=== PATIENT | male | born 1995 | race Caucasian/White ===

== ENCOUNTER 2020-01-01 08:58 | Emergency (ER) | payer BC ==
--- NOTE | 2020-01-01 09:21 | ED Physician Documentation ---
PD HPI NVD - Stated complaint Stated Complaint: NAUSEA - Chief complaint Chief Complaint: Abd Pain - History obtained from History obtained from: Patient - History of Present Illness Timing - onset: Yesterday Timing - duration: Hours Timing - details: Gradual onset, Still present Associated symptoms: Other (nausea and vomiting) Contributing factors: Other (cannabis use) Improved by: Laying still, Vomiting Similar symptoms before: Diagnosis (cannabis hyperemesis) Recently seen: Not recently seen - Additonal information Additional information: Previously well 24-year-old male has a prior history of cannabis hyperemesis and in [place] he smoked a lot of marijuana and had frequent visits to the emergency department requiring rescue a number of times and a one-time 5-day hospitalization. He states the most effective agents for treatment were Haldol and Benadryl and he never got much relief with the use of Zofran. He has moved up to [place] he has been here the last 5 months. He has reduced his intake considerably and subsequently he has been smoking more than usual recently and has now developed symptoms again. He denies any abdominal pain associated today and denies any diarrhea or constipation.He has not otherwise been feeling ill Review of Systems Constitutional: denies: Fever Eyes: denies: Decreased vision Ears: denies: Ear pain Nose: denies: Congestion Throat: reports: Sore throat Cardiac: denies: Chest pain / pressure, Palpitations Respiratory: denies: Dyspnea, Cough GI: reports: Nausea, Vomiting. denies: Abdominal Pain, Constipation, Diarrhea : denies: Dysuria, Frequency PD PAST MEDICAL HISTORY - Present Medications Home Medications: Ambulatory Orders Medication Instructions Recorded Confirmed Fluoxetine HCl [Prozac] 20 mg PO DAILY 01/01/20 01/01/20 haloperidoL [Haldol] 1 - 2 mg PO Q8H PRN #10 tablet 01/01/20 - Allergies Allergies/Adverse Reactions: Allergies Allergy/AdvReac Type Severity Reaction Status Date / Time No Known Drug Allergies Allergy Verified 01/01/20 09:04 PD ED PE NORMAL - Vitals Vital signs reviewed: Yes (Hypertensive) - General General: Alert and oriented X 3, No acute distress, Well developed/nourished - HEENT HEENT: Atraumatic, PERRL, EOMI - Neck Neck: Supple, no meningeal sign, No bony TTP - Cardiac Cardiac: RRR, No murmur - Respiratory Respiratory: No respiratory distress, Clear bilaterally - Abdomen Abdomen: Normal bowel sounds, Soft, Non tender, Non distended, No organomegaly - Back Back: No CVA TTP, No spinal TTP - Derm Derm: Normal color, Warm and dry, No rash - Extremities Extremities: No deformity, No edema - Neuro Neuro: Alert and oriented X 3, 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, No motor deficit, No sensory deficit, Normal speech Eye Opening: Spontaneous Motor: Obeys Commands Verbal: Oriented GCS Score: 15 - Psych Psych: Normal mood, Normal affect Results - Vitals Vitals: Vital Signs - 24 hr 01/01/20 01/01/20 01/01/20 09:05 09:25 10:16 Temperature 37.6 C H Heart Rate 83 85 89 Respiratory 16 16 16 Rate Blood Pressure 163/102 H 165/100 H 153/86 H O2 Saturation 100 100 100 01/01/20 01/01/20 12:00 13:53 Temperature 37.6 C H 37.5 C Heart Rate 101 H 92 Respiratory 16 16 Rate Blood Pressure 163/89 H 150/89 H O2 Saturation 100 100 Oxygen O2 Source Room air - Labs Labs: Laboratory Tests 01/01/20 01/01/20 01/01/20 09:12 09:12 12:32 WBC 13.7 H RBC 5.49 Hgb 16.5 Hct 46.4 MCV 84.5 MCH 30.1 MCHC 35.6 RDW 11.9 L Plt Count 331 MPV 10.3 Neut # (Auto) 12.6 H Lymph # (Auto) 0.5 L [place] # (Auto) 0.5 Eos # (Auto) 0.0 Baso # (Auto) 0.0 Absolute Nucleated RBC 0.00 Nucleated RBC % 0.0 Sodium 137 Potassium 3.8 Chloride 95 L Carbon Dioxide 23 Anion Gap 19.0 H BUN 19 Creatinine 1.0 Estimated GFR (MDRD) 93 Glucose 170 H Calcium 10.3 Total Bilirubin 1.5 H AST 20 ALT 20 Alkaline Phosphatase 71 Total Protein 9.4 H Albumin 5.6 H Globulin 3.8 Albumin/Globulin Ratio 1.5 Lipase 22 Urine Color YELLOW Urine Clarity CLEAR Urine pH 6.5 Ur Specific [place] 1.020 Urine Protein TRACE Urine Glucose (UA) NEGATIVE Urine Ketones >=80 H Urine Occult Blood SMALL H Urine Nitrite NEGATIVE Urine Bilirubin NEGATIVE Urine Urobilinogen 0.2 (NORMAL) Ur Leukocyte Esterase NEGATIVE Urine RBC 0-5 Urine WBC 0-3 Ur Squamous Epith Cells NONE SEEN Urine Bacteria Few Urine Mucus Few Strands Ur Microscopic Review INDICATED Urine Culture Comments NOT INDICATED PD MEDICAL DECISION MAKING - ED course Complexity details: reviewed results, re-evaluated patient, considered d ifferential, d/w patient ED course: 24-year-old male with cannabis hyperemesis is administered Haldol 2.5 mg intravenously as well as Benadryl 25 mg intravenously and has marked improvement in his symptoms he is administered a liter of saline and he is discharged home with a prescription for Haldol 1 mg tablets to take 1-2 every 8 as needed with Benadryl. Departure - Departure Disposition: Home, Self Care Clinical Impression: Cannabis hyperemesis syndrome concurrent with and due to cannabis abuse Condition: Stable Instructions: ED Nausea Vomiting Follow-Up: [facility] [Provider Group] Prescriptions: haloperidoL [Haldol] 1 - 2 mg PO Q8H PRN #10 tablet PRN Reason: vomiting Comments: Elimination of cannabis will resolve your symptoms eventually. If you have recurrence of your symptoms use the Haldol and take it with some Benadryl. Discharge Date/Time: 01/01/20 13:54
[2020-01-01 09:30] LABS: BASOPHILS % (AUTO) 0.1 %; EOSINOPHILS % (AUTO) 0.1 %; HGB - HEMOGLOBIN 16.5 g/dL (14.0-18.0); LYMPHOCYTES # (AUTO) 0.5 10^3/uL (1.5-3.5); LYMPHOCYTES % (AUTO) 3.8 %; MEAN CORPUSCULAR HEMOGLOBIN 30.1 pg (27.0-31.0); MEAN CORPUSCULAR HGB CONC 35.6 g/dL (32.0-36.0); MEAN CORPUSCULAR VOLUME 84.5 fL (80.0-94.0); MEAN PLATELET VOLUME 10.3 fL (7.4-11.4); MONOCYTES # (AUTO) 0.5 10^3/uL (0.0-1.0); MONOCYTES % (AUTO) 3.6 %; NEUTROPHILS # (AUTO) 12.6 10^3/uL (1.5-6.6); PLT - PLATELET COUNT 331 10^3/uL (130-450); RED BLOOD COUNT 5.49 10^6/uL (4.70-6.10); RED CELL DISTRIBUTION WIDTH 11.9 % (12.0-15.0); WHITE BLOOD COUNT 13.7 x10^3/uL (4.8-10.8)
[2020-01-01] MEDS ORDERED: SODIUM CHLORIDE 0.9% 1,000 ML IV STA (09:30)
[2020-01-01] MEDS ORDERED: HALOPERIDOL 5 MG/ML VIAL IVP ONE (09:30)
[2020-01-01] MEDS ORDERED: diphenhydrAMINE INJ 50 MG/ML VIAL IVP STA (09:31)
[2020-01-01 09:41] LABS: ALBUMIN 5.6 g/dL (3.2-5.5); ALBUMIN/GLOBULIN RATIO 1.5 (1.0-2.2); BILIRUBIN,TOTAL 1.5 mg/dL (0.2-1.0); CALCIUM 10.3 mg/dL (8.5-10.3); TOTAL PROTEIN 9.4 g/dL (6.7-8.2)
[2020-01-01 12:34] LABS: BILIRUBIN,URINE NEGATIVE (NEGATIVE); GLUCOSE, URINE (UA) NEGATIVE (NEGATIVE); KETONES,URINE (UA) >=80 mg/dL (NEGATIVE); LEUKOCYTE ESTERASE, URINE NEGATIVE (NEGATIVE); NITRITE,URINE NEGATIVE (NEGATIVE); OCCULT BLOOD,URINE SMALL (NEGATIVE); PH,URINE 6.5 PH (5.0-7.5); PROTEIN,URINE TRACE mg/dL (NEGATIVE); UROBILINOGEN,URINE 0.2 (NORMAL) E.U./dL (NORMAL)
[2020-01-01 12:39] LABS: CLARITY,URINE CLEAR (CLEAR)
[2020-01-01 12:48] LABS: BACTERIA,URINE Few /HPF (None Seen); MUCUS,URINE Few Strands; RBC,URINE 0-5 /HPF (0-5); SQUAMOUS EPITHELIAL CELL,UR NONE SEEN (<= Few)
[2020-01-01 13:54] VITALS: BP 150/89
== END 2020-01-01 13:54 | disposition home or self-care (01) ==
LOC: ED 08:58
DX: R11.2 Nausea with vomiting, unspecified (principal); R03.0 Elevated blood-pressure reading, without diagnosis of hypertension; F12.188 Cannabis abuse with other cannabis-induced disorder
CPT/HCPCS: 36415; 80053; 81001; 83690; 85025; 96361; 96374; 99283; 99284; J1200; 81003; 87086

== ENCOUNTER 2020-01-10 10:07 | Emergency (ER) | payer BC ==
[2020-01-10 11:33] LABS: BASOPHILS % (AUTO) 0.2 %; EOSINOPHILS % (AUTO) 0.4 %; HGB - HEMOGLOBIN 16.8 g/dL (14.0-18.0); LYMPHOCYTES # (AUTO) 1.2 10^3/uL (1.5-3.5); MEAN CORPUSCULAR HGB CONC 35.1 g/dL (32.0-36.0); MEAN CORPUSCULAR VOLUME 85.5 fL (80.0-94.0); MEAN PLATELET VOLUME 9.8 fL (7.4-11.4); MONOCYTES # (AUTO) 0.8 10^3/uL (0.0-1.0); MONOCYTES % (AUTO) 7.3 %; NEUTROPHILS # (AUTO) 8.7 10^3/uL (1.5-6.6); NEUTROPHILS % (AUTO) 80.4 %; PLT - PLATELET COUNT 332 10^3/uL (130-450); RED CELL DISTRIBUTION WIDTH 11.9 % (12.0-15.0); WHITE BLOOD COUNT 10.8 x10^3/uL (4.8-10.8)
[2020-01-10 11:46] LABS: ALBUMIN 5.3 g/dL (3.2-5.5); ALBUMIN/GLOBULIN RATIO 1.8 (1.0-2.2); BILIRUBIN,TOTAL 1.6 mg/dL (0.2-1.0); TOTAL PROTEIN 8.3 g/dL (6.7-8.2)
[2020-01-10] MEDS ORDERED: HALOPERIDOL 5 MG/ML VIAL IVP PRN (13:35)
[2020-01-10] MEDS ORDERED: SODIUM CHLORIDE 0.9% 1,000 ML IV STA (13:35)
[2020-01-10] MEDS ORDERED: diphenhydrAMINE INJ 50 MG/ML VIAL IVP STA (13:35)
[2020-01-10 13:36] LABS: GLUCOSE, URINE (UA) NEGATIVE (NEGATIVE); KETONES,URINE (UA) >=80 mg/dL (NEGATIVE); LEUKOCYTE ESTERASE, URINE NEGATIVE (NEGATIVE); NITRITE,URINE NEGATIVE (NEGATIVE); OCCULT BLOOD,URINE MODERATE (NEGATIVE); PROTEIN,URINE 30 mg/dL (NEGATIVE); UROBILINOGEN,URINE 1 (NORMAL) E.U./dL (NORMAL)
--- NOTE | 2020-01-10 13:38 | ED Physician Documentation ---
History of Present Illness - Stated complaint Stated Complaint: N/V - Chief complaint Chief Complaint: Abd Pain - History obtained from History obtained from: Patient - History of Present Illness Timing: Prior to arrival, How many weeks ago (2) - Additonal information Additional information: 24-year-old male presents to the emergency department for evaluation of uncontrolled vomiting. He was seen here recently for similar. He does have a history of hyperemesis cannabis but denies any cannabis use since being seen in the emergency department. He does report multiple evaluations and hospitalizations when he lived in [place] for similar. He reports that about 5 years ago he did undergo an EGD in which he reports he was diagnosed with gastric paresis. Intermittently through the years his symptoms have been controlled with Reglan but he has not been able to have a prescription for quite some time. He denies fevers, diarrhea. No cough, chest pain or dyspnea. He denies urinary urgency, frequency hematuria flank or CVA pain. No pertinent past surgical history. Review of Systems Constitutional: denies: Fever, Chills Eyes: reports: Reviewed and negative Ears: reports: Reviewed and negative Nose: reports: Reviewed and negative Throat: reports: Reviewed and negative Cardiac: reports: Reviewed and negative Respiratory: reports: Reviewed and negative GI: reports: Abdominal Pain, Nausea, Vomiting. denies: Constipation, Diarrhea, Hematemesis, Bloody / black stool : reports: Reviewed and negative Skin: reports: Reviewed and negative Neurologic: reports: Reviewed and negative PD PAST MEDICAL HISTORY - Past Medical History Cardiovascular: None Respiratory: None Neuro: None Endocrine/Autoimmune: None GI: Other : None HEENT: None Psych: Depression, Anxiety Musculoskeletal: None Derm: None Other Past Medical History: gastroparesis - Past Surgical History Past Surgical History: No - Present Medications Home Medications: Ambulatory Orders Medication Instructions Recorded Confirmed Fluoxetine HCl [Prozac] 20 mg PO DAILY 01/01/20 01/10/20 Ondansetron Odt [Zofran] 4 mg TL Q6H PRN #10 tablet 01/10/20 - Allergies Allergies/Adverse Reactions: Allergies Allergy/AdvReac Type Severity Reaction Status Date / Time No Known Drug Allergies Allergy Verified 01/10/20 10:23 - Social History Does the pt smoke?: Yes Smoking Status: Former smoker Does the pt drink ETOH?: Yes Does the pt have substance abuse?: Yes Substance Use and Type: Marijuana - Immunizations Immunizations are current?: Yes - POLST Patient has POLST: No PD ED PE NORMAL - General General: Alert and oriented X 3, No acute distress, Well developed/nourished - HEENT HEENT: Atraumatic, EOMI, Ears normal, Moist mucous membranes, Pharynx benign - Neck Neck: Supple, no meningeal sign, No adenopathy - Cardiac Cardiac: RRR, No murmur - Respiratory Respiratory: No respiratory distress, Clear bilaterally - Abdomen Abdomen: Normal bowel sounds, Soft, Non distended. No: Non tender (Mild lower suprapubic tenderness. Negative McBurney's negative Rodríguez's. 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, No motor deficit, No sensory deficit Eye Opening: Spontaneous Motor: Obeys Commands Verbal: Oriented GCS Score: 15 Results - Vitals Vitals: Vital Signs - 24 hr 01/10/20 01/10/20 10:24 13:31 Temperature 36.8 C 37.1 C Heart Rate 96 89 Respiratory 16 16 Rate Blood Pressure 159/112 H 166/100 H O2 Saturation 97 99 Oxygen O2 Source Room air - Labs Labs: Laboratory Tests 01/10/20 01/10/20 01/10/20 10:52 11:27 11:27 WBC 10.8 RBC 5.60 Hgb 16.8 Hct 47.9 MCV 85.5 MCH 30.0 MCHC 35.1 RDW 11.9 L Plt Count 332 MPV 9.8 Neut # (Auto) 8.7 H Lymph # (Auto) 1.2 L [place] # (Auto) 0.8 Eos # (Auto) 0.0 Baso # (Auto) 0.0 Absolute Nucleated RBC 0.00 Nucleated RBC % 0.0 Sodium 138 Potassium 3.4 L Chloride 96 L Carbon Dioxide 24 Anion Gap 18.0 H BUN 15 Creatinine 1.0 Estimated GFR (MDRD) 93 Glucose 126 H Calcium 10.0 Total Bilirubin 1.6 H AST 20 ALT 20 Alkaline Phosphatase 72 Total Protein 8.3 H Albumin 5.3 Globulin 3.0 Albumin/Globulin Ratio 1.8 Lipase 27 Urine Color YELLOW Urine Clarity CLEAR Urine pH 6.0 Ur Specific [place] 1.025 Urine Protein 30 H Urine Glucose (UA) NEGATIVE Urine Ketones >=80 H Urine Occult Blood MODERATE H Urine Nitrite NEGATIVE Urine Bilirubin NEGATIVE Urine Urobilinogen 1 (NORMAL) Ur Leukocyte Esterase NEGATIVE Urine RBC 0-5 Urine WBC 0-3 Ur Squamous Epith Cells NONE SEEN Urine Bacteria None Seen Urine Mucus Marked Strands Ur Microscopic Review INDICATED Urine Culture Comments NOT INDICATED - Rads (name of study) CT abd w/o Radiology: Final report received (Suspected right ureteral calculus measuring no greater than 0.5 mm. No associated hydronephrosis or hydroureter. The rest of the exam is unremarkable.) PD MEDICAL DECISION MAKING - ED course Complexity details: reviewed results, re-evaluated patient, considered differential, d/w patient ED course: 24-year-old male presents to the emergency department for chief complaint of uncontrolled vomiting for much of the last 2 weeks. He does have a history of gastroparesis as well as cannabis induced hyperemesis. He does report that he has had no cannabis use now for nearly 2 weeks. On laboratory exam he has no leukocytosis or findings concerning for renal or hepatic impairment. I do note hematuria. In further discussion with the patient he does report that he has a history of kidney stones especially when he was a child. At this time we will proceed with noncontrast CT scan to evaluate for further causes of hematuria. Should be noted that he has no right lower quadrant tenderness and a negative McBurney's. My suspicion for acute appendicitis is low - 1445: Noncontrast CT of the abdomen shows a right ureteral stone without obstruction hydroureter or hydronephrosis. However given the lack of flank or CVA pain my suspicion that this non-obstructing stone is contributing to his symptoms is fairly low. This gentleman was given Haldol and Benadryl here in the emergency department. Since then he has been able to tolerate clear sips of liquid. At this time I suspect that his uncontrolled vomiting is most likely due to gastroparesis. He denies any cannabis use now for nearly 2 weeks. I will write him for a prescription of Reglan. I also advised close follow-up with his primary care doctor to discuss the long-term management of gastroparesis versus intermittent hyperemesis cannabis versus a cyclic vomiting syndrome. emergent return precautions discussed Departure - Departure Disposition: 01 Home, Self Care Clinical Impression: Ureteral calculus, left Vomiting Qualifiers: Vomiting type: unspecified Vomiting Intractability: non-intractable Nausea presence: with nausea Qualified Code(s): R11.2 - Nausea with vomiting, unspecified Hematuria Qualifiers: Hematuria type: other microscopic Qualified Code(s): R31.29 - Other microscopic hematuria; R31.2 - Other microscopic hematuria Condition: Stable Record reviewed to determine appropriate education?: Yes Instructions: Gastroparesis Prescriptions: Ondansetron Odt [Zofran] 4 mg TL Q6H PRN #10 tablet PRN Reason: Nausea / Vomiting Comments: Oleg your CT scan shows a very small nonobstructing stone in your right ureter. This is most likely the cause of the blood in your urine. I think that at this time you are likely having a flare of your gastroparesis. Because you have been prescribed Haldol and Prozac I cannot prescribe Reglan today. However I have written a prescription for Zofran to use for nausea at home. I encourage small frequent sips of clear liquids. It is very important that you schedule a close follow-up with your primary care doctor. They should be in control of managing your gastroparesis in the long-term. Because it is been nearly 2 weeks since you smoked pot I do not feel that cannabis is the cause of your vomiting today. Please return to the emergency department if you have uncontrolled vomiting, fevers, suddenly severe or different abdominal pain or if you find that you are unable to keep foods or liquids down for 48 hours or more.
[2020-01-10 13:39] LABS: BILIRUBIN,URINE NEGATIVE (NEGATIVE); CLARITY,URINE CLEAR (CLEAR); ICTOTEST,URINE NEGATIVE
[2020-01-10 13:47] LABS: BACTERIA,URINE None Seen /HPF (None Seen); MUCUS,URINE Marked Strands; RBC,URINE 0-5 /HPF (0-5); SQUAMOUS EPITHELIAL CELL,UR NONE SEEN (<= Few)
--- NOTE | 2020-01-10 14:23 | CT Report ---
PROCEDURE: Abdomen/Pelvis WO INDICATIONS: Hematuria and vomiting TECHNIQUE: Noncontrast 5 mm thick sections acquired from the diaphragms to the symphysis. 5 mm coronal and sagi ttal reformats were then performed. For radiation dose reduction, the following was used: automated exposure control, adjustment of mA and/or kV according to patient size. COMPARISON: None. FINDINGS: Image quality: Excellent. ABDOMEN: Lung bases: Lung bases are clear. Heart size is normal. Urinary tract: Although not entirely definitive, there is a suspected 0.5 mm right ureteral calculus (series 3 image 49). This produces no hydroureter or hydronephrosis. Additional urolithiasis demonstr ated. No perinephric fat stranding. Normal course and caliber of the ureters. Urinary bladder unremar kable Solid organs: Liver and spleen are normal in size. Gallbladder is normal Pancreas is normal in con tours. No adrenal nodules. Kidneys are normal in size, without hydronephrosis or nephrolithiasis. Peritoneum and bowel: Unenhanced bowel loops demonstrate normal wall thickness and caliber. No free fluid or air. Nodes and vessels: No retroperitoneal or mesenteric adenopathy by size criteria. Aorta and inferior vena cava are normal in caliber. Miscellaneous: No ventral hernias. PELVIS: Genitourinary: Prostate is within normal limits. No threshold enlarged pelvic or inguinal Miscellaneous: No inguinal hernias. Bones: No suspicious bony lesions. No vertebral body compression fractures. IMPRESSION: Suspected right ureteral calculus measuring no greater than 0.5 mm. Reviewed by: Dennis Cedeno MD on 01/10/2020 2:21 PM PDT Approved by: Dennis Cedeno MD on 01/10/2020 2:21 PM PDT Station ID: [id number]
[2020-01-10 15:05] VITALS: BP 145/90
== END 2020-01-10 15:06 | disposition home or self-care (01) ==
LOC: ED 10:07
DX: N20.1 Calculus of ureter (principal); R31.29 Other microscopic hematuria; R11.2 Nausea with vomiting, unspecified; K31.84 Gastroparesis; Z87.891 Personal history of nicotine dependence
CPT/HCPCS: 36415; 74176; 80053; 81001; 83690; 85025; 96360; 96372; 99283; 99284; J1200; 81003; 87086